=== PATIENT | female | born 1960 | race Hispanic/Latino ===

== ENCOUNTER 2020-03-24 17:41 | Emergency (ER) | payer SELFPAY ==
[2020-03-24] MEDS ORDERED: Boostrix 0.5 ML (Tdap) VIAL ONE (18:22)
== END 2020-03-24 19:15 | disposition home or self-care (01) ==
LOC: ERS 17:41
DX: S61.217A Laceration without foreign body of left little finger without damage to nail, initial encounter (principal); I10 Essential (primary) hypertension; Z23 Encounter for immunization; W26.0XXA Contact with knife, initial encounter; Y92.009 Unspecified place in unspecified non-institutional (private) residence as the place of occurrence of the external cause
CPT/HCPCS: 12001; 90471; 90715

== ENCOUNTER 2021-02-14 10:21 | Emergency (ER) | payer SELFPAY ==
[~2021-02-14 10:21] MED LIST: Iopamidol 370 76% 100 ML VIAL ONE
[2021-02-14 11:05] LABS: #Lymphocytes 0.5 thou/uL (1.20-3.40); #Monocytes 0.2 thou/uL (0.11-0.59); #Neutrophils 1.9 thou/uL (1.40-6.50); %Lymphocytes 18.9 % (21.0-51.0); %Monocytes 7.4 % (0.0-10.0); %Neutrophils 73.7 % (42.0-75.0); Hemoglobin 15.7 g/dL (12.0-16.0); Mean Corpuscular HGB CONC 33.9 g/dL (32.0-36.0); Mean Corpuscular Hemoglobin 29.9 pg (27.0-31.0); Mean Corpuscular Volume 87.9 fL (78.0-98.0); Mean Platelet Volume 8.4 fL (7.4-10.4); Platelet Count 146 thou/uL (130-400); RBC Distribution Width 11.4 % (11.5-14.5); Red Blood Cell (RBC) Count 5.26 mill/uL (4.20-5.40); White Blood Cell (WBC) Count 2.5 thou/uL (4.8-10.8)
[2021-02-14 11:28] LABS: ALT (SGPT) 172 U/L (8-55); AST (SGOT) 252 U/L (5-34); Albumin 3.7 g/dL (3.4-4.8); Alkaline Phosphatase 170 U/L (40-110); Anion Gap 14 mmol/L (10-20); BUN (Urea Nitrogen) 15 mg/dL (9.8-20.1); Bilirubin, Total 0.5 mg/dL (0.2-1.2); Calc. Creatinine Clearance 0 mL/min (70-130); Calcium 8.4 mg/dL (7.8-10.44); Carbon Dioxide 28 mmol/L (23-31); Chloride 96 mmol/L (98-107); Globulin 2.8 g/dL (2.4-3.5); Glucose 126 mg/dL (80-115); Potassium 3.7 mmol/L (3.5-5.1); Protein, Total 6.5 g/dL (5.8-8.1); Sodium 134 mmol/L (136-145)
[2021-02-14] MEDS ORDERED: Albuterol Sulfate 1.25 MG/3 ML NEB ONE (11:56)
[2021-02-14] MEDS ORDERED: Ibuprofen 800 MG TAB ONE (11:56)
[2021-02-14] MEDS ORDERED: Albuterol 200 PUFF (6.7GM INHALER) ONE (11:57)
== END 2021-02-14 15:27 | disposition home or self-care (01) ==
LOC: ERS 10:21
DX: U07.1 COVID-19 (principal); J12.82 Pneumonia due to coronavirus disease 2019; I10 Essential (primary) hypertension; Z79.899 Other long term (current) drug therapy
CPT/HCPCS: 36415; 71045; 71275; 80053; 84484; 85025; 85379; 93005; 94664; 94760; Q9967

== ENCOUNTER 2021-02-15 18:27 | Inpatient (IN) | payer SELFPAY ==
[2021-02-15 19:16] LABS: #Lymphocytes 0.5 thou/uL (1.20-3.40); #Monocytes 0.2 thou/uL (0.11-0.59); #Neutrophils 2.4 thou/uL (1.40-6.50); %Eosinophils 0.2 % (0.0-10.0); %Lymphocytes 15.7 % (21.0-51.0); %Monocytes 5.8 % (0.0-10.0); %Neutrophils 78.3 % (42.0-75.0); Hemoglobin 14.7 g/dL (12.0-16.0); Mean Corpuscular HGB CONC 35.2 g/dL (32.0-36.0); Mean Corpuscular Hemoglobin 30.7 pg (27.0-31.0); Mean Corpuscular Volume 87.3 fL (78.0-98.0); Platelet Count 154 thou/uL (130-400); RBC Distribution Width 11.5 % (11.5-14.5); Red Blood Cell (RBC) Count 4.77 mill/uL (4.20-5.40); White Blood Cell (WBC) Count 3.1 thou/uL (4.8-10.8)
[2021-02-15] MEDS ORDERED: Dexamethasone 4 mg/ml Vial ONE (19:21)
[2021-02-15] MEDS ORDERED: Ondansetron PF 4 MG/2 ML Vial ONE (19:42)
[2021-02-15 19:45] LABS: ALT (SGPT) 136 U/L (8-55); AST (SGOT) 174 U/L (5-34); Albumin 3.5 g/dL (3.4-4.8); Alkaline Phosphatase 175 U/L (40-110); Anion Gap 16 mmol/L (10-20); BUN (Urea Nitrogen) 28 mg/dL (9.8-20.1); Bilirubin, Total 0.5 mg/dL (0.2-1.2); Calc. Creatinine Clearance 0 mL/min (70-130); Calcium 8.2 mg/dL (7.8-10.44); Carbon Dioxide 26 mmol/L (23-31); Chloride 95 mmol/L (98-107); Globulin 2.8 g/dL (2.4-3.5); Glucose 126 mg/dL (80-115); Potassium 3.7 mmol/L (3.5-5.1); Protein, Total 6.3 g/dL (5.8-8.1); Sodium 133 mmol/L (136-145)
[2021-02-15] MEDS ORDERED: Ondansetron PF 4 MG/2 ML Vial IVP PRN (23:00)
[2021-02-15] MEDS ORDERED: Ondansetron ODT 4 MG TAB SL PRN (23:00)
[2021-02-15] MEDS ORDERED: Acetaminophen 325 MG TAB PO PRN (23:00)
[2021-02-15 23:12] LABS: Troponin I 0.025 ng/mL (< 0.028)
[2021-02-16 00:01] VITALS: BMI 32.5
[2021-02-16] MEDS ORDERED: Senokot S 8.6-50 MG TAB PO PRN (00:44)
[2021-02-16] MEDS ORDERED: Bisacodyl 5 MG TAB PO PRN (00:44)
[2021-02-16] MEDS ORDERED: Enoxaparin Sodium 40 MG/0.4 ML SYRINGE SC SCH (00:45)
[2021-02-16] MEDS ORDERED: hydrALAZINE 20 MG/ML VIAL SLOW IVP PRN (00:57)
[2021-02-16] MEDS ORDERED: Pharmacy to Dose REMDESIVIR IVPB PRN (00:59)
[2021-02-16] MEDS ORDERED: cefTRIAXone\\ROCEPHIN 2 GM in Sodium Chloride 0.9% 100 ML IVPB SCH (01:30)
[2021-02-16] MEDS ORDERED: Albuterol 200 PUFF (6.7GM INHALER) INH PRN (01:42)
[2021-02-16] MEDS: Guaifenesin DM 100-10/5 ML UDCUP PO PRN ×2 (01:59→20:50)
[2021-02-16] MEDS: Azithromycin 500 MG in Sodium Chloride 0.9% 250 ML 250 ML IVPB SCH (02:01)
[2021-02-16] MEDS: cefTRIAXone\\ROCEPHIN 2 GM in Sodium Chloride 0.9% 100 ML IVPB SCH (05:53)
[2021-02-16 07:18] LABS: #Lymphocytes 0.3 thou/uL (1.20-3.40); #Monocytes 0.1 thou/uL (0.11-0.59); #Neutrophils 1.5 thou/uL (1.40-6.50); %Eosinophils 0.4 % (0.0-10.0); %Monocytes 7.2 % (0.0-10.0); %Neutrophils 77.5 % (42.0-75.0); Hemoglobin 13.8 g/dL (12.0-16.0); Mean Corpuscular HGB CONC 34.6 g/dL (32.0-36.0); Mean Corpuscular Hemoglobin 30.4 pg (27.0-31.0); Mean Corpuscular Volume 87.9 fL (78.0-98.0); Mean Platelet Volume 8.3 fL (7.4-10.4); Platelet Count 149 thou/uL (130-400); RBC Distribution Width 11.4 % (11.5-14.5); Red Blood Cell (RBC) Count 4.53 mill/uL (4.20-5.40); White Blood Cell (WBC) Count 1.9 thou/uL (4.8-10.8)
[2021-02-16 07:39] LABS: ALT (SGPT) 108 U/L (8-55); AST (SGOT) 129 U/L (5-34); Albumin 3.2 g/dL (3.4-4.8); Alkaline Phosphatase 165 U/L (40-110); Anion Gap 14 mmol/L (10-20); BUN (Urea Nitrogen) 32 mg/dL (9.8-20.1); Bilirubin, Total 0.3 mg/dL (0.2-1.2); Calc. Creatinine Clearance 52 mL/min (70-130); Calcium 8.2 mg/dL (7.8-10.44); Carbon Dioxide 26 mmol/L (23-31); Chloride 97 mmol/L (98-107); Globulin 3.1 g/dL (2.4-3.5); Glucose 143 mg/dL (80-115); Potassium 4.1 mmol/L (3.5-5.1); Protein, Total 6.3 g/dL (5.8-8.1); Sodium 133 mmol/L (136-145)
[2021-02-16] MEDS: Mometasone 200 MCG/Formoterol 5 MCG 120 PUFF INHALER INH SCH ×2 (08:00→18:30)
[2021-02-16] MEDS ORDERED: REMDESIVIR 200 MG in Sodium Chloride 0.9% 250 ML 210 ML IV SCH (09:00)
[2021-02-16] MEDS ORDERED: Dexamethasone 10 MG/ML VIAL SLOW IVP SCH (09:00)
[2021-02-16] MEDS: Zinc Sulfate 220 MG CAP PO SCH (09:50)
[2021-02-16] MEDS: Famotidine/PF 20 mg/2ml Vial SLOW IVP SCH (09:53)
[2021-02-16] MEDS: Ascorbic Acid 500 mg Chewable Tablet PO SCH (09:53)
[2021-02-16] MEDS: Dexamethasone 10 MG/ML VIAL SLOW IVP SCH ×2 (09:53→20:50)
[2021-02-16] MEDS: Cholecalciferol (Vitamin D3) 400 UNITS TAB PO SCH (09:56)
[2021-02-16] MEDS: Melatonin 3 MG TAB PO PRN (20:50)
[2021-02-16] MEDS: Enoxaparin Sodium 40 MG/0.4 ML SYRINGE SC SCH (20:50)
[2021-02-17] MEDS: Azithromycin 500 MG in Sodium Chloride 0.9% 250 ML 250 ML IVPB SCH (01:36)
[2021-02-17] MEDS: Mometasone 200 MCG/Formoterol 5 MCG 120 PUFF INHALER INH SCH ×2 (06:24→18:12)
[2021-02-17] MEDS: cefTRIAXone\\ROCEPHIN 2 GM in Sodium Chloride 0.9% 100 ML IVPB SCH (06:24)
[2021-02-17] MEDS: Cholecalciferol (Vitamin D3) 400 UNITS TAB PO SCH (08:50)
[2021-02-17] MEDS: Famotidine/PF 20 mg/2ml Vial SLOW IVP SCH (08:51)
[2021-02-17] MEDS: Zinc Sulfate 220 MG CAP PO SCH (08:51)
[2021-02-17] MEDS: Ascorbic Acid 500 mg Chewable Tablet PO SCH (08:51)
[2021-02-17] MEDS: Dexamethasone 10 MG/ML VIAL SLOW IVP SCH ×2 (08:51→21:36)
[2021-02-17] MEDS: REMDESIVIR 100 MG in Sodium Chloride 0.9% 250 ML 230 ML IV SCH (10:16)
[2021-02-17] MEDS: Enoxaparin Sodium 40 MG/0.4 ML SYRINGE SC SCH (21:36)
[2021-02-17] MEDS: Guaifenesin DM 100-10/5 ML UDCUP PO PRN (21:37)
[2021-02-17] MEDS: Melatonin 3 MG TAB PO PRN (21:38)
[2021-02-18] MEDS: Azithromycin 500 MG in Sodium Chloride 0.9% 250 ML 250 ML IVPB SCH (01:06)
[2021-02-18] MEDS: cefTRIAXone\\ROCEPHIN 2 GM in Sodium Chloride 0.9% 100 ML IVPB SCH (04:53)
[2021-02-18 06:48] LABS: Mean Corpuscular HGB CONC 34.3 g/dL (32.0-36.0); Mean Corpuscular Hemoglobin 30.7 pg (27.0-31.0); Mean Corpuscular Volume 89.4 fL (78.0-98.0); Mean Platelet Volume 8.2 fL (7.4-10.4); Platelet Count 209 thou/uL (130-400); RBC Distribution Width 11.5 % (11.5-14.5); Red Blood Cell (RBC) Count 4.56 mill/uL (4.20-5.40); White Blood Cell (WBC) Count 3.6 thou/uL (4.8-10.8)
[2021-02-18] MEDS: Mometasone 200 MCG/Formoterol 5 MCG 120 PUFF INHALER INH SCH ×2 (06:49→18:34)
[2021-02-18 07:01] LABS: ALT (SGPT) 80 U/L (8-55); AST (SGOT) 71 U/L (5-34); Albumin 2.8 g/dL (3.4-4.8); Alkaline Phosphatase 175 U/L (40-110); Anion Gap 11 mmol/L (10-20); BUN (Urea Nitrogen) 25 mg/dL (9.8-20.1); Bilirubin, Total 0.3 mg/dL (0.2-1.2); CRP (Inflammatory) 3.48 mg/dL (= or < 0.5); Calc. Creatinine Clearance 100 mL/min (70-130); Carbon Dioxide 28 mmol/L (23-31); Chloride 104 mmol/L (98-107); Globulin 2.7 g/dL (2.4-3.5); Glucose 172 mg/dL (80-115); Magnesium 2.4 mg/dL (1.6-2.6); Phosphorus 2.5 mg/dL (2.3-4.7); Potassium 4.2 mmol/L (3.5-5.1); Protein, Total 5.5 g/dL (5.8-8.1); Sodium 139 mmol/L (136-145)
[2021-02-18] MEDS ORDERED: Albuterol 200 PUFF (6.7GM INHALER) INH PRN (08:31)
[2021-02-18] MEDS: Cholecalciferol (Vitamin D3) 400 UNITS TAB PO SCH (09:31)
[2021-02-18] MEDS: Dexamethasone 10 MG/ML VIAL SLOW IVP SCH ×2 (09:31→19:56)
[2021-02-18] MEDS: Ascorbic Acid 500 mg Chewable Tablet PO SCH (09:31)
[2021-02-18] MEDS: Furosemide 20 MG TAB PO SCH ×2 (09:31→14:11)
[2021-02-18] MEDS: Zinc Sulfate 220 MG CAP PO SCH (09:31)
[2021-02-18] MEDS: Enoxaparin Sodium 40 MG/0.4 ML SYRINGE SC SCH ×2 (09:32→19:56)
[2021-02-18] MEDS: REMDESIVIR 100 MG in Sodium Chloride 0.9% 250 ML 230 ML IV SCH (09:32)
[2021-02-18] MEDS: Albuterol 200 PUFF (6.7GM INHALER) INH SCH ×4 (09:33→21:57)
[2021-02-18 10:24] LABS: Band 8 % (5-11); Eosinophils 1 % (0-10); Lymphocytes 10 % (21-51); MDiff Complete? YES; Monocytes 6 % (0-10); Neutrophil 68 % (42-75); Platelet Morphology Comment Appears Adequate; RBC Morphology Normal; Reactive Lymphocytes 7 % (0-10)
[2021-02-18] MEDS ORDERED: Potassium Chloride 20 MEQ TAB PO SCH (17:00)
[2021-02-18] MEDS: Melatonin 3 MG TAB PO PRN (19:57)
[2021-02-18] MEDS: Guaifenesin DM 100-10/5 ML UDCUP PO PRN (21:57)
[2021-02-19] MEDS: Azithromycin 500 MG in Sodium Chloride 0.9% 250 ML 250 ML IVPB SCH (00:03)
[2021-02-19] MEDS: Albuterol 200 PUFF (6.7GM INHALER) INH SCH ×6 (02:33→22:05)
[2021-02-19] MEDS: cefTRIAXone\\ROCEPHIN 2 GM in Sodium Chloride 0.9% 100 ML IVPB SCH (03:13)
[2021-02-19 06:24] LABS: #Lymphocytes 0.4 thou/uL (1.20-3.40); #Monocytes 0.5 thou/uL (0.11-0.59); #Neutrophils 3.4 thou/uL (1.40-6.50); %Eosinophils 0.1 % (0.0-10.0); %Lymphocytes 10.3 % (21.0-51.0); %Monocytes 11.3 % (0.0-10.0); %Neutrophils 78.3 % (42.0-75.0); Hemoglobin 13.7 g/dL (12.0-16.0); Mean Corpuscular HGB CONC 33.7 g/dL (32.0-36.0); Mean Corpuscular Hemoglobin 30.1 pg (27.0-31.0); Mean Corpuscular Volume 89.4 fL (78.0-98.0); Mean Platelet Volume 7.9 fL (7.4-10.4); Platelet Count 288 thou/uL (130-400); RBC Distribution Width 11.5 % (11.5-14.5); Red Blood Cell (RBC) Count 4.56 mill/uL (4.20-5.40); White Blood Cell (WBC) Count 4.3 thou/uL (4.8-10.8)
[2021-02-19] MEDS: Mometasone 200 MCG/Formoterol 5 MCG 120 PUFF INHALER INH SCH ×2 (06:38→19:00)
[2021-02-19 06:43] LABS: ALT (SGPT) 100 U/L (8-55); AST (SGOT) 72 U/L (5-34); Alkaline Phosphatase 191 U/L (40-110); Anion Gap 14 mmol/L (10-20); BUN (Urea Nitrogen) 25 mg/dL (9.8-20.1); Bilirubin, Total 0.3 mg/dL (0.2-1.2); Calc. Creatinine Clearance 94 mL/min (70-130); Calcium 8.2 mg/dL (7.8-10.44); Carbon Dioxide 29 mmol/L (23-31); Chloride 103 mmol/L (98-107); Globulin 2.9 g/dL (2.4-3.5); Glucose 172 mg/dL (80-115); Potassium 3.9 mmol/L (3.5-5.1); Protein, Total 5.9 g/dL (5.8-8.1); Sodium 142 mmol/L (136-145)
[2021-02-19] MEDS ORDERED: FLU VACC QS2021-22(6MOS UP)/PF 60 MCG/0.5 ML SYRINGE IM ONE (09:00)
[2021-02-19] MEDS: Enoxaparin Sodium 40 MG/0.4 ML SYRINGE SC SCH ×2 (10:05→20:34)
[2021-02-19] MEDS: Ascorbic Acid 500 mg Chewable Tablet PO SCH (10:06)
[2021-02-19] MEDS: Cholecalciferol (Vitamin D3) 400 UNITS TAB PO SCH (10:06)
[2021-02-19] MEDS: Zinc Sulfate 220 MG CAP PO SCH (10:07)
[2021-02-19] MEDS: Dexamethasone 10 MG/ML VIAL SLOW IVP SCH ×2 (10:07→20:34)
[2021-02-19] MEDS: REMDESIVIR 100 MG in Sodium Chloride 0.9% 250 ML 230 ML IV SCH (10:37)
[2021-02-19] MEDS: Guaifenesin DM 100-10/5 ML UDCUP PO PRN (20:35)
[2021-02-19] MEDS: Melatonin 3 MG TAB PO PRN (20:40)
[2021-02-20] MEDS: Azithromycin 500 MG in Sodium Chloride 0.9% 250 ML 250 ML IVPB SCH (00:33)
[2021-02-20] MEDS: cefTRIAXone\\ROCEPHIN 2 GM in Sodium Chloride 0.9% 100 ML IVPB SCH (03:04)
[2021-02-20] MEDS: Albuterol 200 PUFF (6.7GM INHALER) INH SCH ×6 (03:04→22:18)
[2021-02-20] MEDS: Mometasone 200 MCG/Formoterol 5 MCG 120 PUFF INHALER INH SCH ×2 (06:03→19:00)
[2021-02-20] MEDS: Enoxaparin Sodium 40 MG/0.4 ML SYRINGE SC SCH ×2 (08:50→20:38)
[2021-02-20] MEDS: Ascorbic Acid 500 mg Chewable Tablet PO SCH (08:50)
[2021-02-20] MEDS: Zinc Sulfate 220 MG CAP PO SCH (08:50)
[2021-02-20] MEDS: Cholecalciferol (Vitamin D3) 400 UNITS TAB PO SCH (08:50)
[2021-02-20] MEDS: Dexamethasone 10 MG/ML VIAL SLOW IVP SCH ×2 (08:50→20:38)
[2021-02-20] MEDS: REMDESIVIR 100 MG in Sodium Chloride 0.9% 250 ML 230 ML IV SCH (09:46)
[2021-02-20] MEDS: Guaifenesin DM 100-10/5 ML UDCUP PO PRN (20:38)
[2021-02-21] MEDS: Azithromycin 500 MG in Sodium Chloride 0.9% 250 ML 250 ML IVPB SCH (00:10)
[2021-02-21] MEDS: Melatonin 3 MG TAB PO PRN (00:10)
[2021-02-21] MEDS: Albuterol 200 PUFF (6.7GM INHALER) INH SCH ×4 (02:44→14:47)
[2021-02-21] MEDS: cefTRIAXone\\ROCEPHIN 2 GM in Sodium Chloride 0.9% 100 ML IVPB SCH (03:06)
[2021-02-21] MEDS: Mometasone 200 MCG/Formoterol 5 MCG 120 PUFF INHALER INH SCH (06:27)
[2021-02-21] MEDS ORDERED: Hydrochlorothiazide 25 MG TAB PO SCH (09:00)
[2021-02-21 09:26] VITALS: BP 135/80; TEMP 97.5
[2021-02-21] MEDS: Cholecalciferol (Vitamin D3) 400 UNITS TAB PO SCH (09:29)
[2021-02-21] MEDS: Zinc Sulfate 220 MG CAP PO SCH (09:29)
[2021-02-21] MEDS: Enoxaparin Sodium 40 MG/0.4 ML SYRINGE SC SCH (09:29)
[2021-02-21] MEDS: Ascorbic Acid 500 mg Chewable Tablet PO SCH (09:29)
[2021-02-21] MEDS: Dexamethasone 10 MG/ML VIAL SLOW IVP SCH (11:42)
[2021-02-21 11:43] LABS: ALT (SGPT) 68 U/L (8-55); AST (SGOT) 36 U/L (5-34); Albumin 2.8 g/dL (3.4-4.8); Alkaline Phosphatase 165 U/L (40-110); Anion Gap 16 mmol/L (10-20); BUN (Urea Nitrogen) 17 mg/dL (9.8-20.1); Bilirubin, Total 0.5 mg/dL (0.2-1.2); Calc. Creatinine Clearance 106 mL/min (70-130); Calcium 7.9 mg/dL (7.8-10.44); Carbon Dioxide 24 mmol/L (23-31); Chloride 102 mmol/L (98-107); Globulin 2.5 g/dL (2.4-3.5); Glucose 196 mg/dL (80-115); Potassium 3.6 mmol/L (3.5-5.1); Protein, Total 5.3 g/dL (5.8-8.1); Sodium 138 mmol/L (136-145)
[2021-02-21 12:27] LABS: #Lymphocytes 0.6 thou/uL (1.20-3.40); #Monocytes 0.9 thou/uL (0.11-0.59); #Neutrophils 6.6 thou/uL (1.40-6.50); %Eosinophils 0.3 % (0.0-10.0); %Lymphocytes 7.9 % (21.0-51.0); %Monocytes 10.7 % (0.0-10.0); %Neutrophils 81.1 % (42.0-75.0); Hemoglobin 13.8 g/dL (12.0-16.0); Mean Corpuscular HGB CONC 32.8 g/dL (32.0-36.0); Mean Corpuscular Hemoglobin 29.3 pg (27.0-31.0); Mean Corpuscular Volume 89.4 fL (78.0-98.0); Mean Platelet Volume 7.8 fL (7.4-10.4); Platelet Count 335 thou/uL (130-400); RBC Distribution Width 11.3 % (11.5-14.5); Red Blood Cell (RBC) Count 4.69 mill/uL (4.20-5.40); White Blood Cell (WBC) Count 8.1 thou/uL (4.8-10.8)
[2021-02-22] MEDS ORDERED: Amlodipine 5 MG TAB PO SCH (09:00)
== END 2021-02-21 16:56 | disposition home or self-care (01) | DRG 177 ==
LOC: ERS 18:27 → T4-B 20:31
PROVIDERS: ADMIT Student in an Organized Health Care Education/Training Program; ATTEND Internal Medicine
PROC: 8E0ZXY6 Isolation (ICD-10-PCS; principal; 2021-02-16)
PROC: 3E0333Z Introduction of Anti-inflammatory into Peripheral Vein, Percutaneous Approach (ICD-10-PCS; 2021-02-16)
PROC: XW033E5 Introduction of Remdesivir Anti-infective into Peripheral Vein, Percutaneous Approach, New Technology Group 5 (ICD-10-PCS; 2021-02-16)
DX: U07.1 COVID-19 (principal); J12.82 Pneumonia due to coronavirus disease 2019; J96.01 Acute respiratory failure with hypoxia; N17.9 Acute kidney failure, unspecified; E87.1 Hypo-osmolality and hyponatremia; I12.9 Hypertensive chronic kidney disease with stage 1 through stage 4 chronic kidney disease, or unspecified chronic kidney disease; E66.9 Obesity, unspecified; R74.01 Elevation of levels of liver transaminase levels; R73.9 Hyperglycemia, unspecified; N18.2 Chronic kidney disease, stage 2 (mild); Z79.899 Other long term (current) drug therapy; Z90.710 Acquired absence of both cervix and uterus; Z83.79 Family history of other diseases of the digestive system; Z68.32 Body mass index [BMI] 32.0-32.9, adult
CPT/HCPCS: 36415; 71045; 80053; 83735; 83880; 84100; 84145; 84484; 85025; 85379; 86140; 90471; 90686; 93005; 96374; 96375; G0008; J0456; J0696; J1100; J1650; J2405; J3490; J7050; S0028